=== PATIENT | male | born 1965 | race Caucasian/White ===

== ENCOUNTER 2021-04-23 19:39 | Emergency (ER) | payer OTHER ==
[~2021-04-23 19:39] MED LIST: BENAZEPRIL-HCT1 EAC1 PO
[2021-04-23 19:57] LABS: HEMOGLOBIN 15.4 gm/dl (14.0-17.5); RED BLOOD COUNT 4.13 M/UL (4.20-5.50); WHITE BLOOD COUNT 6.3 K/UL (4.5-11.0)
[2021-04-23 20:21] LABS: BUN/CREATININE RATIO 4 (0-10)
== END 2021-04-23 21:01 | disposition home or self-care (01) ==
LOC: ER1 19:39
PROVIDERS: Family Medicine
DX: S01.01XA Laceration without foreign body of scalp, initial encounter (principal); I10 Essential (primary) hypertension; W19.XXXA Unspecified fall, initial encounter; Y92.009 Unspecified place in unspecified non-institutional (private) residence as the place of occurrence of the external cause
CPT/HCPCS: 12002; 70450; 71045; 72125; 80053; 81001; 85025; 99284; G0480; J3411; J3475; J7030

== ENCOUNTER → 2021-05-01 | Outpatient (CLI) | payer OTHER | LOC: EXRD 08:24 | DX: M79.675 Pain in left toe(s) (principal); M77.52 Other enthesopathy of left foot and ankle | CPT/HCPCS: 73630 ==

== ENCOUNTER 2021-08-04 20:34 | Emergency (ER) | payer OTHER ==
[2021-08-04 20:50] LABS: HEMOGLOBIN 14.7 gm/dl (14.0-17.5); RED BLOOD COUNT 3.95 M/UL (4.20-5.50); WHITE BLOOD COUNT 5.7 K/UL (4.5-11.0)
[2021-08-04 21:18] LABS: BUN/CREATININE RATIO 10 (0-10)
== END 2021-08-04 21:45 | disposition left against medical advice (07) ==
LOC: ER1 20:34
PROVIDERS: Emergency Medicine
DX: R06.02 Shortness of breath (principal); J44.9 Chronic obstructive pulmonary disease, unspecified; I10 Essential (primary) hypertension; F17.200 Nicotine dependence, unspecified, uncomplicated; Z20.822 Contact with and (suspected) exposure to COVID-19
CPT/HCPCS: 71045; 80053; 82550; 82553; 83690; 83874; 84484; 85025; 93005; 99282; Q9967; U0002

== ENCOUNTER 2021-08-05 16:48 | Emergency (ER) | payer OTHER ==
[2021-08-05 17:51] LABS: HEMOGLOBIN 14.8 gm/dl (14.0-17.5); RED BLOOD COUNT 3.96 M/UL (4.20-5.50); WHITE BLOOD COUNT 6.8 K/UL (4.5-11.0)
[2021-08-05 18:10] LABS: BUN/CREATININE RATIO 9 (0-10)
== END 2021-08-05 22:23 | disposition home or self-care (01) ==
LOC: ER1 16:48
PROVIDERS: Physician Assistant; Surgery
PROC: 0DJ08ZZ Inspection of Upper Intestinal Tract, Via Natural or Artificial Opening Endoscopic (ICD-10-PCS; principal; 2021-08-05 20:51)
DX: K31.89 Other diseases of stomach and duodenum (principal); J43.9 Emphysema, unspecified; I10 Essential (primary) hypertension; F17.210 Nicotine dependence, cigarettes, uncomplicated; Z20.822 Contact with and (suspected) exposure to COVID-19; Z79.899 Other long term (current) drug therapy
CPT/HCPCS: 70491; 80053; 85025; 99284; J2250; J2704; J7040; Q9967; U0002

== ENCOUNTER 2021-09-14 22:31 | Emergency (ER) | payer OTHER ==
[2021-09-14 23:47] LABS: RED BLOOD COUNT 3.75 M/UL (4.20-5.50); WHITE BLOOD COUNT 5.2 K/UL (4.5-11.0)
[2021-09-15 00:17] LABS: BUN/CREATININE RATIO 12 (0-10)
== END 2021-09-15 01:40 | disposition home or self-care (01) ==
LOC: ER1 22:31
PROVIDERS: Physician Assistant Medical
DX: K22.2 Esophageal obstruction (principal); R07.89 Other chest pain; I10 Essential (primary) hypertension; J44.9 Chronic obstructive pulmonary disease, unspecified; F17.210 Nicotine dependence, cigarettes, uncomplicated
CPT/HCPCS: 71045; 80053; 82550; 82553; 83874; 84484; 85025; 93005; 99285

== ENCOUNTER 2021-09-24 14:22 | Inpatient (IN) | payer OTHER ==
[~2021-09-24] VITALS: Ht 188 cm; Wt 77.1 kg
[2021-09-24 16:08] LABS: HEMOGLOBIN 14.3 gm/dl (14.0-17.5); RED BLOOD COUNT 3.84 M/UL (4.20-5.50)
[2021-09-24 16:39] LABS: BUN/CREATININE RATIO 16 (0-10)
[2021-09-24] MEDS ORDERED: MELOXICAM15 MG PO (18:33)
[2021-09-24] MEDS ORDERED: BENAZEPRIL HCL40 MG PO (18:33)
[2021-09-24] MEDS ORDERED: SPIRIVA HANDIH18 MCG INH (18:33)
[2021-09-25 05:51] LABS: HEMOGLOBIN 12.5 gm/dl (14.0-17.5); RED BLOOD COUNT 3.52 M/UL (4.20-5.50); WHITE BLOOD COUNT 6.7 K/UL (4.5-11.0)
[2021-09-25 06:14] LABS: BUN/CREATININE RATIO 14 (0-10)
[2021-09-26 05:30] LABS: HEMOGLOBIN 12.1 gm/dl (14.0-17.5); RED BLOOD COUNT 3.33 M/UL (4.20-5.50)
[2021-09-26 05:43] LABS: BUN/CREATININE RATIO 16 (0-10)
[2021-09-27 14:55] LABS: RED BLOOD COUNT 3.01 M/UL (4.20-5.50); WHITE BLOOD COUNT 4.5 K/UL (4.5-11.0)
[2021-09-27 15:30] LABS: BUN/CREATININE RATIO 8 (0-10)
[2021-09-28 05:32] LABS: HEMOGLOBIN 11.8 gm/dl (14.0-17.5); RED BLOOD COUNT 3.21 M/UL (4.20-5.50)
[2021-09-28 05:47] LABS: BUN/CREATININE RATIO 13 (0-10)
[2021-09-28 05:49] LABS: WHITE BLOOD COUNT 6.1 K/UL (4.5-11.0)
[2021-09-29 06:32] LABS: BUN/CREATININE RATIO 13 (0-10)
[2021-10-01 06:31] LABS: HEMOGLOBIN 11.8 gm/dl (14.0-17.5); RED BLOOD COUNT 3.29 M/UL (4.20-5.50); WHITE BLOOD COUNT 5.4 K/UL (4.5-11.0)
[2021-10-01 06:54] LABS: BUN/CREATININE RATIO 5 (0-10)
[2021-10-01] MEDS ORDERED: TAB-A-VITE TA400 MC1 PO (08:55)
[2021-10-01] MEDS ORDERED: PROAIR HFA8.5 GM INH (08:55)
[2021-10-01] MEDS ORDERED: MYCOSTATIN100000 UTS PO (14:16)
--- NOTE | 2021-10-01 14:51 | NUR ---
discussed results of barium swallow exam with ST. recommendations for nystatin for home medication as well as ent referral. due to patient's insurance, patient must see pcp for hh as well as ent referral to be scheduled. gave patient information regarding following up with pcp for appropriate resources. nystatin for home use ordered per dr. proctor.
== END 2021-10-01 15:01 | disposition home health service (06) | DRG 897 ==
LOC: ER1 14:22 → CDU 17:47 → M/S 17:47 → CCU 09-25 00:14 → M/S 09-30 16:36
PROVIDERS: Emergency Medicine; Physician Assistant; ADMIT Internal Medicine
DX: F10.139 Alcohol abuse with withdrawal, unspecified (principal); E87.1 Hypo-osmolality and hyponatremia; E87.2 Acidosis; R56.9 Unspecified convulsions; J44.9 Chronic obstructive pulmonary disease, unspecified; Z20.822 Contact with and (suspected) exposure to COVID-19; K64.8 Other hemorrhoids; D69.6 Thrombocytopenia, unspecified; F17.210 Nicotine dependence, cigarettes, uncomplicated; E83.42 Hypomagnesemia; Z90.49 Acquired absence of other specified parts of digestive tract; Z80.8 Family history of malignant neoplasm of other organs or systems; Z82.49 Family history of ischemic heart disease and other diseases of the circulatory system; Z83.3 Family history of diabetes mellitus; Z80.51 Family history of malignant neoplasm of kidney
CPT/HCPCS: 36415; 51702; 70450; 71045; 74230; 80048; 80053; 83605; 83735; 84100; 84132; 85025; 85610; 87040; 92526; 92610; 92611-GN; 93005; 94640; 94664; 94760; 96374; 97110-GP-CQ; 97116-GP-CQ; 97162; 99285; C9113; G0480; J2060; J3411; J3475; J3480; J7030; Q9967; U0002

== ENCOUNTER → 2021-10-09 | Outpatient (CLI) | payer OTHER ==
[~2021-10-09] MED LIST changes: +BENAZEPRIL HCL40 MG PO; +MELOXICAM15 MG PO; +MYCOSTATIN100000 UTS PO; +PROAIR HFA8.5 GM INH; +SPIRIVA HANDIH18 MCG INH; +TAB-A-VITE TA400 MC1 PO
== END ==
LOC: EXRD 10:19
DX: J44.9 Chronic obstructive pulmonary disease, unspecified (principal)
CPT/HCPCS: 71046

== ENCOUNTER → 2021-11-07 | Outpatient (CLI) | payer OTHER | LOC: EXRD 10:03 | DX: R63.4 Abnormal weight loss (principal); J44.9 Chronic obstructive pulmonary disease, unspecified | CPT/HCPCS: 71046 ==

== ENCOUNTER → 2021-11-26 | Outpatient (CLI) | payer OTHER | LOC: EXRD 13:38 | DX: M54.50 Low back pain, unspecified (principal) | CPT/HCPCS: 72100 ==

== ENCOUNTER → 2021-12-09 | Outpatient (CLI) | payer OTHER | LOC: CT 09:30 | DX: J44.9 Chronic obstructive pulmonary disease, unspecified (principal); R13.10 Dysphagia, unspecified; R63.4 Abnormal weight loss; R53.1 Weakness; R05.9 Cough, unspecified; R91.1 Solitary pulmonary nodule | CPT/HCPCS: 71250; Q9967 ==